=== PATIENT | female | born 1995 | race Caucasian/White ===

== ENCOUNTER 2024-08-11 09:26 | Emergency (ER) | payer OTHER, SELFPAY ==
[2024-08-11 09:28] VITALS: BP 130/84
--- NOTE | 2024-08-11 09:46 | ED.GENMED ---
History of Present Illness
General
Chief Complaint: Abdominal Symptoms
Time Seen by Provider: 08/11/24 09:33
History of Present Illness
History of Present Illness:
29-year-old female with prior history of kidney stones presenting to the emergency department for left flank pain. Patient reports for the past month she has been having urinary frequency. She had a urine test by her primary care doctor, was
negative for infection. Last evening, patient had severe left-sided flank pain with radiation to her groin. She notes history of a kidney stone several years ago, required lithotripsy and symptoms feel similar. Denies nausea, vomiting, changes in
stool. Denies any abdominal surgeries. She has tried ibuprofen for pain with mild relief. Denies additional acute medical complaints
Phy Exam
Physical Exam
Physical Exam:
General: Well-appearing, no clinical signs of dehydration, nontoxic and in no acute distress
HEENT: protecting airway
Neck: appears supple
CV: Normal heart rate
Resp: No accessory muscle use, no increased work of breathing
Abd: Soft and non-distended, no tenderness to palpation
Extremities: No deformities, no swelling
Neuro: alert, no focal neurologic deficit
: deferred
Rectal: deferred
Psych: Normal affect
Skin: Intact
Course
Orders/Labs/Results
Orders:
Orders
08/11/24 09:43
Ketorolac [Toradol] 15 mg IV NOW STA
08/11/24 09:44
CT Abd/pel Without Iv Or Oral Urgent
Comment:
Reason For Exam: L-flank, hx of stones
Test Result ONCE
08/11/24 09:50
Complete Blood Count/With Diff Urgent
Comprehensive Metabolic Panel Urgent
HCG, Urine Qualitative Screen Urgent
Date Specimen was Collected: 08/11/24
Time Specimen was Collected: 09:45
Urinalysis Reflex To Culture Urgent
Date Specimen was Collected: 08/11/24
Time Specimen was Collected: 09:45
Urine Microscopic Reflex Cult Urgent
Urine Culture Urgent
ALEIXA Source: U
Specimen Description:
Date Specimen was Collected: 08/11/24
Time Specimen was Collected:
08/11/24 10:22
0.9% Sodium Chloride 1000 ml [Nss] 1,000 ml IV BOLUS
08/11/24 11:36
Morphine Sulfate 4 mg IV NOW STA
Abnormal Lab Results
08/11/24
09:50
Absolute Monos (auto) 1.0 H 10^3/uL
(0.1-0.6)
Monocytes % 10.1 H %
(1.7-9.3)
Urine Ketones 2+ A
(Negative)
Ur Occult Blood Reflex 2+ A
(Negative)
Urine RBC 7-10 A /HPF
(0-2)
Urine Bacteria (Reflex) Moderate A
(Negative)
08/11/24 09:50
08/11/24 09:50
Vital Signs
Initial and Last Documented VS:
Initial Vital Signs
Temp Pulse Resp BP Pulse Ox
98.2 F 78 16 130/84 98
08/11/24 09:28 08/11/24 09:28 08/11/24 09:28 08/11/24 09:28 08/11/24 09:28
Last Documented Vital Signs
Temp Pulse Resp BP Pulse Ox
98.2 F 68 16 132/98 100
08/11/24 09:28 08/11/24 11:41 08/11/24 12:00 08/11/24 11:41 08/11/24 11:41
MDM/Problems Addressed
MDM/Problems Addressed:
29-year-old female with history of kidney stones presenting for left flank pain. Vital signs on arrival are normal.
On exam patient is well-appearing, no acute distress. Does appear uncomfortable secondary to pain. Symptoms appear most consistent with nephrolithiasis. Lower suspicion for infected stone, nontoxic, afebrile. Plan for laboratory analysis,
urinalysis, CT imaging. Toradol administered for pain. Will reassess for improvement.
11:30 -patient's labs are unremarkable. No leukocytosis, no signs of urine infection. CT shows 6 mm stone with mild hydronephrosis. Consistent with patient's exam. Patient's pain has improved, is still present, will administer morphine. However
otherwise feel stable for discharge with outpatient supportive therapy. Patient is from [place], would like to follow-up with urology in [place], feel reasonable, flies home tomorrow. Will start patient on Flomax, however explained to patient that
prior to her flight if she is having worsening pain, fever, vomiting with inability to tolerate p.o., that she is to return to the hospital. Patient verbalized understanding
*Critical Care Note
Total Time (30-74mins, 75-104mins- exclusive of procedures): Not Applicable
ED Attending Note
-
Portions of this chart may have been created with voice recognition software.� Occasional wrong word or��sound alike� substitutions may have occurred due to the inherent limitations of voice recognition software.
Discharge Plan
Departure
Patient Disposition: Home (Routine Discharge)
Date of Disposition: 08/11/24
Time of Disposition: 12:18
Patient with high blood pressure during this ER visit?: No
Condition: Good
Discharge Problem:
Ureterolithiasis
Instructions: Kidney Stone, Adult ED
Prescriptions:
New
tamsulosin [Flomax] 0.4 mg capsule
0.4 mg PO DAILY 7 Days Qty: 7 0RF
ibuprofen 600 mg tablet
600 mg PO Q8H PRN (Reason: Pain) Qty: 20 0RF
oxycodone-acetaminophen [Percocet] 5-325 mg tablet
1 tab PO Q8H PRN (Reason: Pain) 3 Days Qty: 9 0RF
Referrals:
Bernard Curtis MD [Active] -
NONE,* [Family Provider] -
Activity Restrictions/Additional Instructions:
You were seen in the emergency department for pain in your flank
You were found to have a 6 mm stone. You may have difficulty passing the stone on your own given its size, so you will require outpatient urologic follow-up for potential stenting versus lithotripsy.
Please follow-up closely with your primary care physician.
Return to the emergency department for any worsening of your symptoms, or any development of chest pain, difficulty breathing, abdominal pain with persistent vomiting and inability to tolerate food or liquid by mouth (concern for dehydration),
weakness, headache or confusion, fever greater than 100.4, or any additional symptoms that are concerning to you.
Thank you for choosing [facility].
Interventions
Interventions:
*Risk Screen - Suicide Last Done: 08/11/24 09:28
*General Assessment Last Done: 08/11/24 09:34
*Neglect/Abuse Screening Last Done: 08/11/24 09:28
ED- Fall Risk Assessment Last Done: 08/11/24 12:29
*ED COVID-19 Vaccine History Last Done: 08/11/24 09:34
*Nursing Disposition Last Done: 08/11/24 12:29
BR-Zppolg-Xuojydnwqz Assessment Last Done: 08/11/24 09:34
Discharge Date and Time
Discharge Date/Time: 08/11/24 12:39
Print Language: UPPER SORBIAN
[2024-08-11 09:55] LABS: % Basophils 0.6 % (0-2); % Eosinophils 1.1 % (0-6); % Immature Granulocytes 0.2 % (0-0.5); % Lymphocytes 29.8 % (20.5-51.1); % Monocytes 10.1 % (1.7-9.3); % Neutrophils 58.2 % (42.2-75.2); Absolute Basophils 0.1 10^3/uL (0-0.2); Absolute Eosinophils 0.1 10^3/uL (0-0.7); Absolute Lymphocytes 2.8 10^3/uL (1.2-3.4); Absolute Neutrophils 5.5 10^3/uL (1.4-6.5); Hematocrit 41.2 % (37.0-47.0); Hemoglobin 13.8 g/dL (12.0-16.0); Mean Corp Hgb Conc. 33.5 g/dL (33.0-37.0); Mean Corpuscular Hgb 30.2 pg (27.0-31.0); Mean Corpuscular Volume 90.2 fL (81.0-99.0); Mean Platelet Volume 9.4 fL (7.4-10.4); Nucleated Red Blood Cells % 0 %; Platelet Count 263 10^3/uL (130-400); Red Blood Cell Count 4.57 10^6/uL (4.20-5.40); Red Cell Dist. Width 11.9 % (11.5-14.5); White Blood Cell Count 9.5 10^3/uL (4.8-10.8)
[2024-08-11 10:06] LABS: Urine Albumin Trace (Neg - Trace); Urine Bilirubin Negative (Negative); Urine Character Slightly Cloudy (Clear); Urine Color Yellow; Urine Glucose Negative (Negative); Urine Ketone 2+ (Negative); Urine Leukocyte Negative (Negative); Urine Nitrite Negative (Negative); Urine Occult Blood 2+ (Negative); Urine Specific Gravity 1.015 (<1.030); Urine Urobilinogen Negative (Neg - 1+)
[2024-08-11 10:10] LABS: ALT (SGPT) 22 U/L (0-35); AST (SGOT) 28 U/L (14-36); Albumin 4.2 g/dl (3.5-5.0); Alkaline Phosphatase 72 U/L (38-126); Blood Urea Nitrogen 17 mg/dl (7-17); Carbon Dioxide 22 mmol/L (22-30); Chloride 106 mmol/L (98-107); Glucose 85 mg/dl (70-99); HCG, Urine Qualitative Screen Negative; Potassium 4.1 mmol/L (3.5-5.1); Sodium 139 mmol/L (135-145); Total Bilirubin 0.4 mg/dl (0.2-1.3); Total Protein 6.9 g/dl (6.3-8.2); eGFR > 60.00
[2024-08-11] MEDS: TORADOL 15 MG IV (10:11)
[2024-08-11 10:28] LABS: Urine Bacteria Moderate (Negative); Urine Squamous Cell >30 /LPF (Few)
[2024-08-11] MEDS: NSS 1000 IV (10:35)
[2024-08-11] MEDS: MORPHINE SULFATE 4 MG IV (11:39)
[2024-08-11 11:41] VITALS: BP 132/98
== END 2024-08-11 12:39 | disposition home or self-care (01) ==
LOC: EMR 09:26
PROVIDERS: EMERGENCY PHYSICIAN Student in an Organized Health Care Education/Training Program
DX: N13.2 Hydronephrosis with renal and ureteral calculous obstruction (principal); Z87.442 Personal history of urinary calculi
CPT/HCPCS: 99284; 96374; 96375; 96361; 74176; 80053; 81003; 81015; 81025; 85025; 87086